=== PATIENT | female | born 1990 | race Caucasian/White ===

== ENCOUNTER → 2021-10-05 | Emergency (ER) | payer OTHER ==
[~2021-10-05] VITALS: Ht 177.8 cm; Wt 79.4 kg
[~2021-10-05] MED LIST: DEPAKOTE ER500 MG PO; LAMICTAL5 MG PO; MOBIC15 MG PO
== END | disposition home or self-care (01) ==
LOC: ER 22:05
DX: R52 Pain, unspecified (principal); F41.9 Anxiety disorder, unspecified; Z88.6 Allergy status to analgesic agent; Z88.1 Allergy status to other antibiotic agents; R00.0 Tachycardia, unspecified